=== PATIENT | female | born 1995 | race Caucasian/White ===

== ENCOUNTER 2020-10-08 06:19 | Emergency (ER) | payer OTHER ==
[2020-10-08 06:33] VITALS: BP 131/75; PULSE 83; TEMP 99.1; BMI 25.6
[2020-10-08] MEDS ORDERED: MAG HYDROX/AL HYDROX/SIMETH -MYLANTA- ORAL SUSPENSION PO ONE (07:28)
[2020-10-08] MEDS ORDERED: FAMOTIDINE 20 MG TABLET PO ONE (07:28)
[2020-10-08] MEDS ORDERED: MAG HYDROX/AL HYDROX/SIMETH 30 ML UNIT-DOSE CUP ONE (07:39)
[2020-10-08] MEDS ORDERED: FAMOTIDINE 20 MG TABLET ONE (07:39)
== END 2020-10-08 09:32 | disposition home or self-care (01) ==
LOC: JER 06:19
DX: R10.13 Epigastric pain (principal)
CPT/HCPCS: 84703; 93005; 93010; 99284-25